=== PATIENT | female | born 1960 | race African-American/Black ===

== ENCOUNTER 2024-06-29 01:03 | Day surgery (SDC) | payer OTHER, SELFPAY ==
[2024-06-22 09:51] VITALS: BMI 29.7
--- NOTE | 2024-06-22 10:18 | SUR.PREOP ---
Report to the Outpatient Waiting Room, entrance under the green pavilion located off [facility], at time 0815 on date 06/29/2024. Planned Procedure Time: 1015.? Time changes happen often and if your time is changed the preop area will call you the afternoon before. - You and your visitor will be asked to self-screen and do not enter if you have any COVID symptoms. Please call surgeon if you need to reschedule. - A mask is optional within the hospital at this time. Patients may have clear liquids (water, carbonated beverages, clear teas, apple juice) until 3 hours prior to surgery with a maximum of 20 ounces. - No food from midnight until time of surgery and no smoking Take only the following medications with a SIP of water on the morning of surgery: Nasal spray DO NOT STOP ANY OF YOUR OTHER PRESCRIPTION MEDICATIONS PRIOR TO SURGERY EXCEPT THE FOLLOWING Medications to discontinue per physician: Vitamins/Supplements- 3 days Date to take last dose: 06/26 Please no make-up, nail georgian, hairspray, perfume, deodorant, or body powder the day of surgery.? No jewelry (including any body piercings) or valuables the day of surgery, leave them at home.? Please take a shower or bath the night before, or the morning of, surgery with an antibacterial soap.? Wear comfortable, loose fitting clothing.? Children are encouraged to wear pajamas. - Jewelry must be removed prior to entering the operating room.? Rings and piercings that are not removed may be cut off. - The hospital will not accept responsibility for valuables.? - Please leave all valuables, including medications, at home the day of surgery. If you are going home after surgery, a licensed jeep driver must drive you home.? - NO public transportation without another adult if you receive anesthesia. - We recommend that an adult stay with you for 24 hours following discharge. - We also recommend that you do not drive, make important decision, drink alcoholic beverages, or take any drugs that were not prescribed by your health care provider for at least 24 hours after your discharge time. For Pediatric surgeries, we recommend two adults accompany the child home. Follow any additional instructions given to you from your surgeon. Telephone instructions given to ____patient and asked if any additional questions and then verbalized understanding. Patient advised to call surgeon office or pre surgery nurse liaison [phone] if any additional questions.
--- NOTE | 2024-06-29 08:01 | WPDHPUPDATE1 ---
History and Physical Update Update Date/Time: 06/29/24 08:01 History and Physical has been reviewed, including an updated exam of the patient. There are NO changes in the patient's condition. Risks, benefits, and alternatives have been discussed and questions answered. Patient agrees to proceed with procedure.
--- NOTE | 2024-06-29 08:01 | PM.HPGS ---
History of Present Illness History of Present Illness Consent: Risks, benefits, and alternatives have been discussed and questions answered. Patient agrees to proceed with procedure. Chief complaint: post menopausal bleeding Narrative: Patricia Nash is a 64 year old female with an episode of possible postmenopausal bleeding in February of 2024. Patient underwent pelvic ultrasound which did reveal a thickened lining at 5 mm. It was recommended to undergo D&C hysteroscopy to fully evaluate. Pelvic ultrasound does show multiple fibroids which postmenopausally will not be removed unless they inhibit the visualization of the cavity. Risks of infection, bleeding, perforation, and possible pathology are discussed. Patient voices understanding and agrees to proceed. Review of Systems Review of Systems: not repeated day of surgery; patient states no changes in status PMFSH Past Medical History Medical History (Updated 06/29/24 @ 08:05 by Yuliya Sin MD) Borderline diabetes (normal spontaneous vaginal delivery) x3 Surgical History Surgical History (Updated 06/29/24 @ 08:04 by Yuliya Sin MD) History of ankle surgery History of left knee surgery arthroscopy Social History Social History Smoking status: Never smoker Alcohol intake: current Alcohol use details: very rare- social only Substance use: never Living arrangements: with family Spiritual care concerns: No Meds Home Medications and Allergies Home Medications Medication Instructions Recorded Confirmed Type ascorbic acid (vitamin C) 1,000 mg 1,000 mg PO DAILY 06/22/24 06/22/24 History tablet ergocalciferol (vitamin D2) 1,250 50,000 unit PO WEEKLY 06/22/24 06/22/24 History mcg (50,000 unit) capsule estradiol-norethindrone acet 1 1 tablet PO DAILY 06/22/24 06/22/24 History mg-0.5 mg tablet fexofenadine 180 mg tablet 180 mg PO DAILY 06/22/24 06/22/24 History fluticasone propionate 50 1 spray intranasal DAILY 06/22/24 06/22/24 History mcg/actuation nasal spray,suspension Allergies Allergy/AdvReac Type Severity Reaction Status Date / Time No Known Allergies Allergy Verified 06/22/24 09:47 Exam Const: General: healthy appearing and alert Orientation/consciousness: patient oriented x3 Resp: Effort & Inspection: normal respiratory effort GI: GI Palp: Yes Soft to palpation, No Tenderness to palpation present (GI) and No Palpable mass present : External Female Exam: normal external appearance Speculum Exam - Vagina: normal appearance of the vagina and normal vaginal discharge Speculum Exam - Cervix: normal appearance of the cervix Bimanual exam- vagina & uterus: consistency normal and enlarged ( 15 week size) Bimanual Exam- Adnexa, other: normal adnexae and No adnexal tenderness Neuro: General: patient oriented x3 Assessment and Plan Assessment and plan (1) Post-menopausal bleeding: Code(s): N95.0 - Postmenopausal bleeding Status: Acute Assessment and Plan: Due to thickened lining, plan to proceed with D&C hysteroscopy.
[2024-06-29] MEDS: LACTATED RINGERS 1,000 ML 30 ML IV CONT (09:00)
--- NOTE | 2024-06-29 09:26 | P.PNAN_ITS ---
Anes - Initial Pre Proc Eval Procedure: Operation Date: 06/29/24 10:15 Proposed Procedures p Hysteroscopy, Dilation and Curettage - Yuliya Sin MD Date/Time: 06/29/24 09:26 Surgeon: Yuliya Sin MD Pre Op Diagnosis: post menopausal bleeding Patient Data Age: 64 Gender: F Height: 1.59 m Weight: 75 kg Allergies Allergy/AdvReac Type Severity Reaction Status Date / Time No Known Allergies Allergy Verified 06/22/24 09:47 Home Medications Medication Instructions Recorded Confirmed Type ascorbic acid (vitamin C) 1,000 mg 1,000 mg PO DAILY 06/22/24 06/22/24 History tablet ergocalciferol (vitamin D2) 1,250 50,000 unit PO WEEKLY 06/22/24 06/22/24 History mcg (50,000 unit) capsule estradiol-norethindrone acet 1 1 tablet PO DAILY 06/22/24 06/22/24 History mg-0.5 mg tablet fexofenadine 180 mg tablet 180 mg PO DAILY 06/22/24 06/22/24 History fluticasone propionate 50 1 spray intranasal DAILY 06/22/24 06/22/24 History mcg/actuation nasal spray,suspension Patient hx anesthesia problems: none Family hx anesthesia problems: none Results Review: All pre-operative results and documents have been reviewed as part of the pre-op erative evaluation. [facility] Past Medical History Medical History Borderline diabetes (normal spontaneous vaginal delivery) x3 Surgical History Surgical History History of ankle surgery History of left knee surgery arthroscopy Social History Social History Smoking status: Never smoker Alcohol intake: current Alcohol use details: very rare- social only Substance use: never Living arrangements: with family Spiritual care concerns: No Anes - Eval Final PreProcedure Day of Procedure 06/29/24 09:26 Patient weight: obese Heart: regular rate and rhythm Lungs: clear to auscultation Airway: Mallampati scale and special considerations (L incisor is chipped. ) Neurological: alert and oriented Last oral intake: >/= 8 hours ASA classification: II Emergent: no Anesthetic plan: proceed Anesthesia type and monitoring: general GIVS and standard monitoring Results Review: All pre-operative results and documents have been reviewed as part of the pre- operative evaluation. BMI 30. Informed Consent: The patient's anesthetic plan and its attendant risks and benefits were discussed with the patient/family/POA. Questions were solicited and answers provided to the satisfaction of the patient/family/POA.
[2024-06-29] MEDS: ACETAMINOPHEN 500 MG TABLET 1000 MG PO (09:34)
[2024-06-29 09:46] VITALS: BP 149/87; PULSE 84; RESP 18; TEMP 36.7; O2SAT 100
[2024-06-29 11:15] VITALS: BP 131/75; PULSE 79; RESP 16; O2SAT 100
--- NOTE | 2024-06-29 11:17 | P.OP_ITS ---
Procedure Note - Detailed Date of Procedure 06/29/24 Pre-op Diagnosis post menopausal bleeding Post-op Diagnosis Same Procedure Performed D&C hysteroscopy Surgeon Yuliya Sin MD Anesthesia MAC Findings the uterus is very anteverted and sounds to 13cm endometrium was severely atrophic Description of Procedure The patient was taken to the operating room and placed under anesthesia in the dorsal lithotomy position. She was prepped and draped in usual sterile fashion. [place] speculum was placed in the vagina and the cervix grasped on the anterior lip with a tenaculum. The internal os is stenotic. The os Finders were used and the cavity was opened. Uterus sounds to 13cm is noted to be very anteverted. The hysteroscope was placed and with the severely atrophic appearing endometrium noted, it is removed. The sharp OO curette is used to c urette the endometrium until a good uterine cry was noted in all areas. There is minimal, if any, material obtained consistent with the visual appearance. The patient was awakened from anesthesia and taken to recovery in stable condition. Sponge, needle, and instrument counts are correct per the OR staff. Estimated Blood Loss 5 Drains No Packing No Pathology Yes ( endometrial curettings) Complications No immediate complications Condition Stable Disposition PACU
[2024-06-29 11:45] VITALS: BP 143/83; PULSE 64; O2SAT 100
[2024-06-29 12:15] VITALS: BP 153/71; PULSE 62
== END 2024-06-29 12:35 | disposition home or self-care (01) ==
PROVIDERS: PCP Family Medicine; Visit Provider Obstetrics & Gynecology Gynecology
PROC: 0U5B8ZZ Destruction of Endometrium, Via Natural or Artificial Opening Endoscopic (ICD-10-PCS; CPT 58563; principal; 2024-06-29 10:15)
DX: N95.0 Postmenopausal bleeding (principal); E66.9 Obesity, unspecified; Z68.30 Body mass index [BMI] 30.0-30.9, adult; Z98.890 Other specified postprocedural states
CPT/HCPCS: 58558; 88305; A9270; J2003; J2704; J3010; J7030; J7120